=== PATIENT | male | born 1955 | race American Indian/Alaskan Native ===

== ENCOUNTER 2018-08-19 12:26 | Emergency (ER) | payer OTHER ==
[2018-08-19] MEDS ORDERED: BENADRYL IV ONE (12:35)
[2018-08-19] MEDS ORDERED: SOLU-Medrol IV ONE (12:35)
[2018-08-19] MEDS ORDERED: PEPCID IV ONE ×2 (12:36→12:38)
[2018-08-19] MEDS ORDERED: SOLU-Medrol ONE (12:38)
[2018-08-19] MEDS ORDERED: NACL 0.9% 1000 ML 1,000 ML IV ONE (12:58)
[2018-08-19 13:27] VITALS: BP 137/65
--- NOTE | 2018-08-19 15:19 | Emergency Department Report ---
ED Allergic Reaction HPI - General Chief complaint: Allergic Reaction Stated complaint: RT LEG BEE STING/ALLERGIC REACTION Time Seen by Provider: 08/19/18 12:58 Source: patient Mode of arrival: Ambulatory Limitations: No Limitations - History of Present Illness Initial Comments: 62 yo M reports multiple bee stings to arm and leg while mowing the lawn. Reports swelling to bee sting sites, facial swelling, itching. Denies any difficulty breathing of sensation of throat closing. MD Complaint: allergic reaction -: This afternoon Exposure: insect bite Symptoms: itching, facial swelling. denies: difficulty breathing, orolingual swelling, nausea, vomiting Severity: moderate Treatment Prior to Arrival: none - Related Data Previous Rx's Medication Instructions Recorded Last Taken Type EPINEPHrine [Epipen] 0.3 mg IJ ONCE PRN #1 auto.injct 08/19/18 Unknown Rx predniSONE [Deltasone] 50 mg PO QDAY #5 tab 08/19/18 Unknown Rx Allergies Allergy/AdvReac Type Severity Reaction Status Date / Time bee sting Allergy Swelling Uncoded 08/19/18 12:35 ED Review of Systems ROS: Stated complaint: RT LEG BEE STING/ALLERGIC REACTION Other details as noted in HPI Comment: All other systems reviewed and negative Respiratory: denies: shortness of breath, stridor, wheezing Cardiovascular: denies: chest pain Gastrointestinal: denies: nausea, vomiting Skin: rash ED Past Medical Hx - Past Medical History Previous Medical History?: Yes - Surgical History Past Surgical History?: No - Medications Home Medications: Home Medications Medication Instructions Recorded Confirmed Last Taken Type EPINEPHrine [Epipen] 0.3 mg IJ ONCE PRN #1 auto.injct 08/19/18 Unknown Rx predniSONE [Deltasone] 50 mg PO QDAY #5 tab 08/19/18 Unknown Rx ED Physical Exam - General Limitations: No Limitations General appearance: alert, in no apparent distress - Head Head exam: Present: atraumatic, normocephalic - Eye Eye exam: Present: normal appearance - ENT ENT exam: Present: other (mild facial swelling present) - Neck Neck exam: Present: normal inspection - Respiratory Respiratory exam: Present: normal lung sounds bilaterally. Absent: respiratory distress, wheezes, stridor - Cardiovascular Cardiovascular Exam: Present: regular rate, normal rhythm - GI/Abdominal GI/Abdominal exam: Present: soft. Absent: distended, tenderness - Extremities Exam Extremities exam: Present: normal inspection - Neurological Exam Neurological exam: Present: alert, oriented X3, CN II-XII intact. Absent: motor sensory deficit - Psychiatric Psychiatric exam: Present: normal affect, normal mood - Skin Skin exam: Present: warm, dry, intact, normal color, rash ED Course Vital Signs 08/19/18 13:09 Temperature 97.5 F L Pulse Rate 84 Respiratory 16 Rate Blood Pressure 137/65 [Right] O2 Sat by Pulse 100 Oximetry - Reevaluation(s) Reevaluation #1: 08/19/18 15:19 Symptoms resolved. Pt feeling much better at this time. Will d/c home. Critical care attestation.: If time is entered above; I have spent that time in minutes in the direct care of this critically ill patient, excluding procedure time. ED Disposition Clinical Impression: Allergic reaction to bee sting Disposition: DC-01 TO HOME OR SELFCARE Is pt being admited?: No Condition: Stable Instructions: Allergies (ED), Anaphylaxis (ED) Prescriptions: predniSONE [Deltasone] 50 mg PO QDAY #5 tab EPINEPHrine [Epipen] 0.3 mg IJ ONCE PRN #1 auto.injct PRN Reason: Anaphylaxis [facility] [Primary Care Provider] - 3-5 Days Time of Disposition: 15:17
== END 2018-08-19 15:25 | disposition home or self-care (01) ==
LOC: ED 12:26
DX: T63.441A Toxic effect of venom of bees, accidental (unintentional), initial encounter (principal); Z91.030 Bee allergy status; Y92.89 Other specified places as the place of occurrence of the external cause
CPT/HCPCS: 96374; 96375; 99282; J1200; J2930; J7030